=== PATIENT | male | born 1995 | race Two or more races ===

== ENCOUNTER 2022-09-04 14:21 | Emergency (ER) | payer OTHER ==
[~2022-09-04] VITALS: Ht 165.1 cm; Wt 86.2 kg
[2022-09-04 14:38] VITALS: BP 145/98
== END 2022-09-04 16:22 | disposition home or self-care (01) ==
LOC: ER 14:26
DX: S83.92XA Sprain of unspecified site of left knee, initial encounter (principal); X83.8XXA Intentional self-harm by other specified means, initial encounter; Y93.89 Activity, other specified; Y92.89 Other specified places as the place of occurrence of the external cause; Y99.8 Other external cause status
CPT/HCPCS: 73564-TC